=== PATIENT | female | born 1975 | race African-American/Black ===

== ENCOUNTER 2020-02-28 16:33 | Emergency (ER) | payer OTHER, SELFPAY ==
[2020-02-28 16:54] VITALS: BP 138/73; PULSE 90; RESP 20; TEMP 36.9; O2SAT 100
--- NOTE | 2020-02-28 17:00 | ED.EYEPROB ---
HPI - Eye Problem General Chief complaint: Eye Problems Stated complaint: Redness R/L eye Time Seen by Provider: 02/28/20 17:00 Source: patient and RN notes reviewed Mode of arrival: ambulatory Limitations: no limitations History of Present Illness HPI Narrative: 44-year-old female presents with concern for red eyes. She reports bilateral red eyes with white drainage. Reports symptoms started a month ago with the right eye, then moved to the left eye and then moved back to the right eye. She reports currently symptoms are in both eyes. Denies pain, itching, decreased vision. Denies rhinorrhea, nasal congestion, sore throat, cough, fever, body aches, shortness of breath. chief complaint: eye redness Related Data Allergies Allergy/AdvReac Type Severity Reaction Status Date / Time No Known Allergies Allergy Verified 02/28/20 16:58 Review of Systems Review of Systems: Narrative: CONSTITUTIONAL: Denies malaise, chills, sweats, or fever. EYES: Denies visual changes. Reports bilateral redness, or discharge. ENT: Denies rhinorrhea, congestion, sinus pain, otalgia or sore throat. RESPIRATORY: Denies cough or dyspnea. SKIN: Denies rash or itching. NEUROLOGIC: Denies headache. All systems reviewed & are unremarkable except as noted in HPI and below PMFSH Family History Family History (Updated 02/03/18 @ 10:56 by DOCTOR UNKNOWN) Mother Patient's mother is in good health Father Patient's father is in good health Social History Social History Smoking status: Never smoker Alcohol intake: current Comments At time of signature, agree with nursing past medical, surgical, social and family history. There is no relevant family history pertinent to the presenting complaint Exam Narrative: Exam Narrative: GENERAL: Well-appearing, well-nourished, and in no acute distress. HEAD: Normocephalic, atraumatic. EYES: PERRLA, and EOMI. No nystagmus. Sclera injected bilaterally, crusty discharge noted ENT: Nares clear, turbinates pink, no rhinorrhea or epistaxis. Mucous membranes moist. TM pearly du with sharp light reflex bilaterally; no tragal tenderness. Oropharynx without erythema or lesions. Tonsils not enlarged and without exudate. NECK: Supple. CHEST: No respiratory distress. Clear to auscultation. No bony deformities, no asymmetry. Speaks in full sentences. HEART: Regular rate and rhythm. SKIN: Warm, dry, no rash. NEURO: Alert and oriented x3. PSYCH: Normal mood and affect Course Course Emergency Course: Patient is aware of diagnosis, understands and agrees to treatment plan. Anticipatory guidance given. Patient agrees to follow-up as directed and is aware of reasons to seek care at the emergency department. Portions of this record may have been created with voice recognition software Vital Signs Vital signs: Vital Signs Temperature 98.5 F 02/28/20 16:54 Pulse Rate 90 02/28/20 16:54 Respiratory Rate 20 02/28/20 16:54 Blood Pressure 138/73 02/28/20 16:54 Pulse Oximetry 100 02/28/20 16:54 Temperature 98.5 F 02/28/20 16:54 Pulse Rate 90 02/28/20 16:54 Respiratory Rate 20 02/28/20 16:54 Blood Pressure 138/73 02/28/20 16:54 Pulse Oximetry 100 02/28/20 16:54 Reviewed. Patient has been instructed to follow up with her primary care provider within the next week regarding her elevated blood pressure today. MDM - Eye Problem MDM Narrative Medical decision making narrative: Consideration of the following conditions may be warranted for the presenting problem, they are not final diagnoses: Bacterial conjunctivitis, allergic conjunctivitis, viral conjunctivitis, foreign body, blepharitis, chalazion, hordeolum, corneal abrasion. Exam findings show no acute concerns or changes; patient is non-toxic appearing and is in no distress. Patient is appropriate for outpatient treatment and follow-up. Critical Care Time Critical Care Time Critical Care Time: No Discharge Plan Discharg
== END 2020-02-28 17:10 | disposition home or self-care (01) ==
PROVIDERS: Emergency Provider Nurse Practitioner; PCP Emergency Medicine
DX: H10.33 Unspecified acute conjunctivitis, bilateral (principal)
CPT/HCPCS: 99213; G0463

== ENCOUNTER 2022-05-23 15:57 | Outpatient (CLI) | payer OTHER, SELFPAY ==
[2022-05-23 16:16] LABS: Hematocrit 39.6 % (37.0-47.0); Hemoglobin 12.2 g/dL (12.0-15.0); Mean Corpuscular HGB Conc 30.8 g/dl (32-36); Mean Corpuscular Hemoglobin 24.4 pg (26-34); Mean Platelet Volume 10.7 fl (7.4-10.4); Platelet Count Result 269 k/mm3 (150-375); Red Blood Count 5.01 M/mm3 (4.2-5.4); Red Cell Distribution Width 13.4 % (11.5-14.5); White Blood Count 8.6 K/mm3 (4.5-10.0)
[2022-05-23 17:01] LABS: Alanine Aminotransferase 12 U/L (6-35); Albumin Level 4.3 g/dL (3.5-5.1); Alkaline Phosphatase 121 U/L (38-126); Anion Gap 4 mmol/L (8-16); Aspartate Amino Transferase 21 U/L (14-36); Bilirubin,Total 0.1 mg/dL (0.2-1.3); Blood Urea Nitrogen 21 mg/dL (7-17); Calcium 9.3 mg/dL (8.4-10.2); Carbon Dioxide 32 mmol/L (22-30); Chloride 103 mmol/L (98-107); Estimated Glomerular Filt Rate > 60; Glucose 87 mg/dL (65-110); Potassium 3.7 mmol/L (3.4-5.0); Sodium 139 mmol/L (137-145)
[2022-05-23 17:02] LABS: Iron 86 ug/dL (37-170)
[2022-05-23 17:13] LABS: Percent Iron Saturation 24 % (20-50)
[2022-05-29 14:46] LABS: Hematocrit 39.4 % (35.0-45.0); Hemoglobin 12.2 g/dL (11.7-15.5); MCH 23.6 pg (27.0-33.0); MCV 76.2 fL (80.0-100.0); RDW 13.1 % (11.0-15.0); Red Blood Cell Count 5.17 Mill/uL (3.80-5.10)
== END 2022-05-23 15:58 | disposition home or self-care (01) ==
LOC: ANHLAB 15:58
PROVIDERS: PCP Emergency Medicine; Visit Provider Internal Medicine Hematology & Oncology
DX: D50.9 Iron deficiency anemia, unspecified (principal)
CPT/HCPCS: 36415; 80053; 82728; 83021; 83540; 83550; 85027

== ENCOUNTER 2022-10-09 15:25 | Emergency (ER) | payer OTHER, SELFPAY ==
[2022-10-09 15:30] VITALS: BP 119/69; PULSE 70; RESP 16; TEMP 36.8; O2SAT 100
--- NOTE | 2022-10-09 16:10 | ED.URI ---
HPI - URI/Sore Throat General Chief Complaint: Upper Respiratory Infection Stated Complaint: uri Time Seen by Provider: 10/09/22 16:10 Source: patient and RN notes reviewed Mode of arrival: ambulatory Limitations: no limitations History of Present Illness HPI Narrative: 47-year-old female presenting for complaint of headache, body aches, sinus pressure/congestion, cough, fatigue, fever/chills. Onset 3 days. She endorses her family has been sick last week, with unknown illness. Patient is using cough drops and [id number] medications without significant relief. She denies shortness of breath, wheezing, vomiting. MD elicited complaint: cough Related Data Allergies Allergy/AdvReac Type Severity Reaction Status Date / Time No Known Allergies Allergy Verified 10/09/22 15:39 Review of Systems Review of Systems: ROS per [facility] Past Medical History Medical History Body mass index [BMI] 31.0-31.9, adult (02/03/18) Fatigue Hot flashes Pain in right thigh Vitamin D deficiency Family History Family History Mother Patient's mother is in good health Father Patient's father is in good health Social History Social History Smoking status: Never smoker Alcohol intake: current Exam Narrative: GENERAL: Ill-appearing, nontoxic EYES: PERRLA, conjunctivae clear ENT: Mucous membranes moist. TMs pearly du with light reflex bilaterally; no tragal tenderness. Oropharynx erythematous without lesions or exudate, no drooling, no hoarseness, no trismus, uvula midline. NECK: Supple. No lymphadenopathy CHEST: Clear to auscultation, breath sounds equal. No wheezing, rhonchi, rales, or stridor. No respiratory distress, speaks in full sentences. Dizziness reported with deep inspirations HEART: Regular rate and rhythm. No murmur heard. SKIN: Warm, dry, no rash. PSYCH: Normal mood and affect Course Course Emergency Course: Patient is aware of diagnosis, understands and agrees to treatment plan. Anticipatory guidance given. Patient agrees to follow-up as directed and is aware of reasons to seek care at the emergency department. Portions of this record may have been created with voice recognition software Level of Care: Express Care Visit Vital Signs Vital signs: Vital Signs Temperature 98.3 F 10/09/22 15:30 Pulse Rate 70 10/09/22 15:30 Respiratory Rate 16 10/09/22 15:30 Blood Pressure 119/69 10/09/22 15:30 Pulse Oximetry 100 10/09/22 15:30 Oxygen Delivery Room Air 10/09/22 15:30 Temperature 98.3 F 10/09/22 15:30 Pulse Rate 70 10/09/22 15:30 Respiratory Rate 16 10/09/22 15:30 Blood Pressure 119/69 10/09/22 15:30 Pulse Oximetry 100 10/09/22 15:30 Oxygen Delivery Room Air 10/09/22 15:30 reviewed MDM - URI/Sore Throat MDM Narrative Medical decision making narrative: flu and strep negative. Patient reported mild lightheadedness on exam during deep inspiration. COVID test positive. Results reviewed with patient. Advised supportive measures and signs/symptoms to go to the ER. Pt is appropriate for outpt treatment and f/u. Differential Diagnosis Differential diagnosis: Likely upper respiratory infection, sinusitis and viral infection Lab Data Labs: Lab Results 10/09/22 Range/Units 16:15 POC SARS CoV-2 Ag Positive (Negative) Influenza A Screen Negative Reference Range: Negative Influenza B Screen Negative Reference Range: Negative Strep Screen Presumptive Negative *(Reference Range: Negative)* Discharge Plan Discharge Clinical Impression: COVID-19 Patient Disposition: Home, Self-Care Condition: Stabl
== END 2022-10-09 16:44 | disposition home or self-care (01) ==
PROVIDERS: Emergency Provider Nurse Practitioner Family; PCP Emergency Medicine
DX: U07.1 COVID-19 (principal)
CPT/HCPCS: 87081; 87426; 87804; 87880; 99213; C9803; G0463

== ENCOUNTER 2023-12-17 14:06 | Emergency (ER) | payer OTHER, SELFPAY ==
--- NOTE | ~2023-12-17 | XR_ITS ---
EXAMINATION: XR knee LT 3V DATE: 12/17/2023 16:37 INDICATION: Left knee pain. Fall. TECHNIQUE: 3 views of left knee were obtained. COMPARISON: None. FINDINGS: Bone alignment is normal. No fracture. There is mild tricompartmental osteoarthritis. No kn ee joint effusion. IMPRESSION: 1. Mild left knee osteoarthritis. Reviewed, dictated and finalized at location E. [facility]
[2023-12-17 14:22] VITALS: BP 139/88; PULSE 69; RESP 18; TEMP 36.4; O2SAT 100
[2023-12-17 16:04] VITALS: BP 134/82; PULSE 66; RESP 18; O2SAT 100
--- NOTE | 2023-12-17 17:11 | ED.LOWEXIN ---
HPI - Extremity Injury (Lower) General Chief Complaint: Extremity Injury, Lower Stated Complaint: L knee pain Time Seen by Provider: 12/17/23 16:22 Source: patient Mode of arrival: EMS Limitations: no limitations History of Present Illness HPI Narrative: This is a 48 year old female that presents to the ER for left knee pain. Reports slipped on the ice. Fell onto the left knee. She did not hit her head or lose consciousness. No other focal injuries or areas of pain. Reports decreased active ROM in the knee due to pain. Denies numbness. Related Data Allergies Allergy/AdvReac Type Severity Reaction Status Date / Time No Known Allergies Allergy Verified 12/17/23 16:24 Review of Systems Review of Systems: CONSTITUTIONAL: Denies fever MUSCULOSKELETAL: Reports joint pain, and myalgia. NEUROLOGIC: Denies numbness, or weakness. All systems reviewed & are unremarkable except as noted in HPI and below PMFSH Past Medical History Medical History Body mass index [BMI] 31.0-31.9, adult (02/03/18) Fatigue Hot flashes Pain in right thigh Vitamin D deficiency Family History Family History Mother Patient's mother is in good health Father Patient's father is in good health Social History Social History Smoking status: Never smoker Alcohol intake: current Exam Narrative: GENERAL: Well-appearing, well-nourished, and in no acute distress. HEAD: Normocephalic, atraumatic. EYES: EOMI. CHEST: Clear to auscultation. No respiratory distress. No wheezes rales or rhonchi HEART: Regular rate and rhythm. No murmur heard. Normal peripheral pulses. EXTREMITIES: Normal range of motion. No edema or obvious deformity. Normal DP pulse. Normal sensation SKIN: Warm, dry, no rash. NEURO: No focal deficits. Alert and oriented x3. PSYCH: Normal mood and affect Course Course Emergency Course: Patient updated on workup and agrees with plan of care Vital Signs Vital signs: Vital Signs Temperature 97.5 F L 12/17/23 14:22 Pulse Rate 69 12/17/23 14:22 Respiratory Rate 18 12/17/23 14:22 Blood Pressure 139/88 12/17/23 14:22 Pulse Oximetry 100 12/17/23 14:22 Temperature 97.5 F L 12/17/23 14:22 Pulse Rate 66 12/17/23 16:04 Respiratory Rate 18 12/17/23 16:04 Blood Pressure 134/82 12/17/23 16:04 Pulse Oximetry 100 12/17/23 16:04 Procedures Orthopedic Splinting/Casting Injury #1: Splinting/Casting Date: 12/17/23 Splinting/Casting Time: 17:38 Side: left Lower Extremity Injury Location: knee Lower Extremity Immobilizer: Lonnie wrap Pre-Procedure Neuro Vascular Exam: normal Post-Procedure Neuro Vascular Exam: normal Other Orthopedic Equipment: crutches MDM - Extremity Injury (Lower) MDM Narrative Medical decision making narrative: Patient presents to the ER for left knee pain after an injury today. Reports slipping and falling on the ice. She did not hit her head or lose consciousness. She is neurovascularly intact. Left knee x-ray shows mild osteoarthritis. Patient placed in Lonnie wrap and given crutches. Instructed to rest, ice and take [id number] pain medication as needed. She is to follow up with her primary provider. She was given warnings to return to the ER Differential Diagnosis Differential diagnosis: Likely acute internal derangement of knee Imaging Data Radiologist's impression: ITS Impressions Knee X-Ray 12/17/23 16:40 IMPRESSION: 1. Mild left knee osteoarthritis. Critical Care Time Critical Care Time Critical Care Time: No Discharge Plan Discharge Clinical Impression: Left knee sprain Qualifiers: Encounter type: initial encounter Involved ligament of knee: unspecified ligament Qualified Code(s): S83.92XA - Sprain of unspecified
[2023-12-17] MEDS: IBUPROFEN 600 MG TABLET PO (17:42)
== END 2023-12-17 18:07 | disposition home or self-care (01) ==
PROVIDERS: Emergency Provider Physician Assistant; PCP Emergency Medicine
DX: S83.92XA Sprain of unspecified site of left knee, initial encounter (principal); W00.0XXA Fall on same level due to ice and snow, initial encounter
CPT/HCPCS: 73562; 99283; A9270

== ENCOUNTER 2024-05-12 09:45 | Day surgery (SDC) | payer OTHER, SELFPAY ==
[2024-04-29 10:49] VITALS: BMI 34.0
[2024-05-07 09:20] VITALS: BMI 33.8
[2024-05-12 11:06] VITALS: BP 134/89; PULSE 71; RESP 18; TEMP 37.2; O2SAT 100; BMI 33.5
[2024-05-12] MEDS: LACTATED RINGERS 1,000 ML 150 ML IV CONT (11:18)
--- NOTE | 2024-05-12 11:22 | WPDANESEPPF ---
Anes - Initial Pre Proc Eval Procedure: Operation Date: 05/12/24 12:00 Proposed Procedures p Diagnostic Colonoscopy - Clement Montalvo MD Date/Time: 05/12/24 11:22 Surgeon: Clement Montalvo MD Pre Op Diagnosis: Family History of Colon Cancer Patient Data Age: 48 Gender: F Height: 1.63 m Weight: 88.6 kg Last Vital Signs Temp 37.2 C 05/12/24 11:06 Pulse 71 05/12/24 11:06 Resp 18 05/12/24 11:06 BP 134/89 05/12/24 11:06 Pulse Ox 100 05/12/24 11:06 O2 Del Method Room Air 05/12/24 11:06 Allergies Allergy/AdvReac Type Severity Reaction Status Date / Time No Known Allergies Allergy Verified 05/12/24 11:05 Home Medications Medication Instructions Recorded Confirmed Type cholecalciferol (vitamin D3) 1,250 1,250 mcg PO WEEKLY #12 caps 04/23/24 05/12/24 Rx mcg (50,000 unit) capsule Patient hx anesthesia problems: none Family hx anesthesia problems: none Results Review: All pre-operative results and documents have been reviewed as part of the pre-operative evaluation. [facility] Past Medical History Medical History Body mass index [BMI] 31.0-31.9, adult (02/03/18) COVID-19 Fatigue Hot flashes Pain in right thigh Trigger finger of left thumb Vitamin D deficiency Family History Family History Mother Patient's mother is in good health Father Patient's father is in good health Social History Social History Smoking status: Never smoker Alcohol intake: current Substance use: never Substance use type: does not use Do You Feel Safe in your Home?: Yes Lack of Transportation: No Lack of Food: Never True Current Housing: I Have Housing Concerned About Future Housing: No Difficulty Paying Gas/Electric Bills: No Difficulty Paying for Meds: No Currently Unemployed: No Education: Associate Degree Difficulty w/ Childcare or Family Care: No Living arrangements: with family Spiritual care concerns: No Anes - Eval Final PreProcedure Day of Procedure 05/12/24 11:22 Patient weight: obese Heart: regular rate and rhythm Lungs: clear to auscultation Airway: Mallampati scale class II Neurological: alert and oriented Last oral intake: >/= 8 hours ASA classification: II Emergent: no Anesthetic plan: proceed Anesthesia type and monitoring: general GIVS and standard monitoring Results Review: All pre-operative results and documents have been reviewed as part of the pre-operative evaluation. Informed Consent: The patient's anesthetic plan and its attendant risks and benefits were discussed with the patient/family/POA. Questions were solicited and answers provided to the satisfaction of the patient/family/POA.
--- NOTE | 2024-05-12 11:42 | PM.HPGS ---
History of Present Illness History of Present Illness Consent: Risks, benefits, and alternatives have been discussed and questions answered. Patient agrees to proceed with procedure. Chief complaint: Family History of Colon Cancer Narrative: Nova Hensley is a 48 year old female presents for screening colonoscopy. Patient's current weight appetite and bowel movements are normal. Patient's family history is significant that her mother had colon cancer. Previous colonoscopy 5 years ago was unremarkable. Review of Systems Review of Systems: All systems reviewed & are unremarkable except as noted in HPI and below PMFSH Past Medical History Medical History Body mass index [BMI] 31.0-31.9, adult (02/03/18) COVID-19 Fatigue Hot flashes Pain in right thigh Trigger finger of left thumb Vitamin D deficiency Family History Family History Mother Patient's mother is in good health Father Patient's father is in good health Social History Social History Smoking status: Never smoker Alcohol intake: current Substance use: never Substance use type: does not use Do You Feel Safe in your Home?: Yes Lack of Transportation: No Lack of Food: Never True Current Housing: I Have Housing Concerned About Future Housing: No Difficulty Paying Gas/Electric Bills: No Difficulty Paying for Meds: No Currently Unemployed: No Education: Associate Degree Difficulty w/ Childcare or Family Care: No Living arrangements: with family Spiritual care concerns: No Meds Home Medications and Allergies Home Medications Medication Instructions Recorded Confirmed Type cholecalciferol (vitamin D3) 1,250 1,250 mcg PO WEEKLY #12 caps 04/23/24 05/12/24 Rx mcg (50,000 unit) capsule Allergies Allergy/AdvReac Type Severity Reaction Status Date / Time No Known Allergies Allergy Verified 05/12/24 11:05 Vital Signs Vital Signs - 24 hr 05/12/24 11:06 Temperature 99 F Pulse Rate 71 Respiratory Rate 18 Blood Pressure 134/89 Pulse Oximetry 100 Oxygen Delivery Room Air Exam Narrative: Physical exam reveals patient to be alert. Vital signs stable. HEENT exam is unremarkable. Patient is anicteric. Lungs are clear to auscultation and percussion is without murmur or extra sounds. Abdomen bowel sounds are present soft nontender with no organomegaly. Digital external rectal exam normal. Assessment and Plan Assessment and plan (1) Family history of colon cancer: Code(s): Z80.0 - Family history of malignant neoplasm of digestive organs Status: Acute Assessment and Plan: Patient's mother had colon cancer. Plan follow-up colonoscopy at 5 year intervals.
[2024-05-12 12:05] VITALS: BP 103/71; PULSE 81; RESP 15; O2SAT 99
--- NOTE | 2024-05-12 12:11 | WPDANESPN ---
Anes - Prog Note Post-Op Date/Time: 05/12/24 12:11 Cardiovascular status: normal Respiratory status: normal Airway patency: baseline Mental status: baseline Post-Op hydration status: normal Vital Signs: Last Vital Signs Temp 37.2 C 05/12/24 11:06 Pulse 81 05/12/24 12:05 Resp 15 05/12/24 12:05 BP 103/71 05/12/24 12:05 Pulse Ox 99 05/12/24 12:05 O2 Del Method Room Air 05/12/24 12:05 Pain Score (VAS): 0/10 I/O: Intake & Output 05/11/24 05/12/24 05/12/24 23:59 07:59 15:59 Intake Total 400 Balance 400 Patient Feedback: Patient satisfied with anesthetic care.
[2024-05-12 12:15] VITALS: BP 108/66; PULSE 74; RESP 14; O2SAT 100
[2024-05-12 12:25] VITALS: BP 107/83; PULSE 70; RESP 14; O2SAT 100
== END 2024-05-12 12:33 | disposition home or self-care (01) ==
PROVIDERS: PCP Emergency Medicine; Visit Provider Internal Medicine Gastroenterology
PROC: 0DJD8ZZ Inspection of Lower Intestinal Tract, Via Natural or Artificial Opening Endoscopic (ICD-10-PCS; CPT 45378; principal; 2024-05-12 12:00)
DX: Z80.0 Family history of malignant neoplasm of digestive organs (principal); D12.5 Benign neoplasm of sigmoid colon; K57.30 Diverticulosis of large intestine without perforation or abscess without bleeding
CPT/HCPCS: 45385

== ENCOUNTER 2024-05-13 07:02 | Outpatient (NON) | payer OTHER, SELFPAY | END 2024-05-13 07:03 | disposition home or self-care (01) | LOC: ANHLAB 07:03 | PROVIDERS: PCP Emergency Medicine; Visit Provider Internal Medicine Gastroenterology | DX: D12.5 Benign neoplasm of sigmoid colon (principal); Z80.0 Family history of malignant neoplasm of digestive organs | CPT/HCPCS: 88305 ==

== ENCOUNTER 2025-05-13 17:23 | Outpatient (CLI) | payer OTHER, SELFPAY ==
--- NOTE | ~2025-05-13 | XR_ITS ---
CHEST RADIOGRAPH, PA AND LATERAL CLINICAL HISTORY: R06.2 - Wheezing . COMPARISON: 07/24/2018 TECHNIQUE: PA and lateral views of the chest. FINDINGS The cardiomediastinal silhouette is unremarkable. The lungs are clear. No significant peribronchial thickening is appreciated. IMPRESSION: No focal infiltrate or effusion. Reviewed, dictated and finalized at location A.
== END 2025-05-13 17:24 | disposition home or self-care (01) ==
PROVIDERS: PCP Emergency Medicine; Visit Provider Emergency Medicine
DX: R06.2 Wheezing (principal)
CPT/HCPCS: 71046